=== PATIENT | female | born 2005 | race Caucasian/White ===

== ENCOUNTER 2024-06-20 22:36 | Emergency (ER) | payer MEDICAID ==
[2024-06-20] MEDS ORDERED: DROPERIDOL IV ONE (23:37)
[2024-06-20] MEDS ORDERED: SODIUM CHLORIDE 0.9% IV ONE (23:37)
[2024-06-20] MEDS: diphenhydrAMINE 50 MG/ML SDV IVPUSH ONE (23:52)
[2024-06-20] MEDS: Haloperidol Lactate 5 MG/ML SDV IVPUSH ONE (23:54)
[2024-06-20] MEDS: Sodium Chloride 0.9% 1,000 ML IV ONE (23:54)
[2024-06-20] MEDS: Sodium Chloride 0.9% 10 ML Syringe FLUSH PRN (23:55)
== END 2024-06-21 02:08 | disposition left against medical advice (07) ==
LOC: JD.ED 22:36
DX: F41.0 Panic disorder [episodic paroxysmal anxiety] (principal); R07.9 Chest pain, unspecified; Z87.19 Personal history of other diseases of the digestive system; F17.210 Nicotine dependence, cigarettes, uncomplicated; Z53.29 Procedure and treatment not carried out because of patient's decision for other reasons
CPT/HCPCS: 82947; 93005; 96361; 96374; 96375; 99285; J1200; J1630; J7030; 93010; 99284

== ENCOUNTER 2024-07-15 02:50 | Emergency (ER) | payer MEDICAID ==
[2024-07-15] MEDS ORDERED: Sodium Chloride 0.9% 10 ML Syringe FLUSH PRN (02:57)
[2024-07-15] MEDS ORDERED: LORazepam 2 MG/ML SDV IVPUSH ONE (03:29)
[2024-07-15 03:31] LABS: BASOPHILS PERCENT AUTO 0.3 % (0.0-1.0); EOSINOPHILS PERCENT AUTO 0.1 % (0.0-6.0); HEMATOCRIT 40.3 % (37.0-47.0); IMMATURE GRAN ABSOLUTE AUTO 0.05 K/mm3 (0.00-0.05); IMMATURE GRAN PERCENT AUTO 0.5 % (0.0-0.4); LYMPHOCYTES ABSOLUTE AUTO 0.6 K/mm3 (1.0-4.8); LYMPHOCYTES PERCENT AUTO 6.4 % (24.0-44.0); MEAN CORPUSCULAR HEMOGLOBIN 30.1 pg (28.0-32.0); MEAN CORPUSCULAR HGB CONC 34.7 g/dl (32.0-36.0); MEAN CORPUSCULAR VOLUME 86.7 fl (83.0-99.0); MEAN PLATELET VOLUME 10.6 fl (9.4-12.3); MONOCYTES ABSOLUTE AUTO 0.5 K/mm3 (0.0-0.8); MONOCYTES PERCENT AUTO 4.6 % (0.0-8.0); NEUTROPHILS ABSOLUTE AUTO 8.5 K/mm3 (1.8-7.7); NEUTROPHILS PERCENT AUTO 88.1 % (41.0-71.0); PLATELET COUNT,PLT 226 K/mm3 (150-400); RED BLOOD CELL COUNT 4.65 M/mm3 (4.10-5.30); WHITE BLOOD CELL COUNT,WBC 9.69 K/mm3 (3.9-11.3)
[2024-07-15] MEDS: Ondansetron 4 MG/2 ML SDV IVPUSH ONE ×2 (03:41→07:29)
[2024-07-15 04:04] LABS: ALANINE AMINOTRANSFERASE,ALT 16 U/L (14-59); ALKALINE PHOSPHATASE 78 U/L (46-116); ANION GAP 20.1 (5-15); ASPARTATE AMNIOTRANSFERASE,AST 21 U/L (15-37); BILIRUBIN TOTAL 0.6 mg/dL (0.2-1.0); BLOOD UREA NITROGEN,BUN 9 mg/dL (7-18); BUN/CREATININE RATIO 11.3 (14-18); CALCIUM 9.4 mg/dL (8.5-10.1); CARBON DIOXIDE,CO2 19 mEq/L (21-32); CHLORIDE,CL 102 mEq/L (98-107); CREATININE 0.8 mg/dL (0.55-1.02); ESTIMATED GFR 107 mL/min (>60); GLUCOSE RANDOM 148 mg/dL (70-99); LIPASE 27 U/L (16-77); MAGNESIUM 1.7 mg/dL (1.8-2.4); POTASSIUM,K 3.1 mEq/L (3.5-5.1); PROTEIN TOTAL,TP 7.9 g/dl (6.4-8.2); SODIUM,NA 138 mEq/L (136-145)
[2024-07-15] MEDS: droPERidol 5 MG/2 ML SDV IVPUSH ONE (04:12)
[2024-07-15] MEDS ORDERED: Naloxone 0.4 MG/ML SDV IVPUSH PRN ×2 (04:16→07:11)
[2024-07-15] MEDS: Morphine 2 MG/ML SYRINGE IVPUSH ONE (04:21)
[2024-07-15 04:42] LABS: TROPONIN I HIGH SENSITIVITY < 4 pg/mL (<=51)
[2024-07-15] MEDS: hydrOXYzine HCl 10 MG Tab PO SCH (05:05)
[2024-07-15 05:08] LABS: T4 FREE 1.12 ng/dL (0.76-1.46)
[2024-07-15 06:26] LABS: APPEARANCE,URINE CLEAR (Clear); BILIRUBIN,URINE NEGATIVE (Negative); COLOR,URINE YELLOW (Yellow); GLUCOSE,URINE NEGATIVE (Negative); KETONES,URINE 4+ (Negative); LEUKOCYTE ESTERASE,URINE NEGATIVE (Negative); NITRITE,URINE NEGATIVE (Negative); OCCULT BLOOD,URINE NEGATIVE (Negative); PH,URINE 6.5 (5.0-8.0); PROTEIN,URINE 2+ (Negative); UROBILINOGEN,URINE 0.2 (0.2-1.0)
[2024-07-15 06:46] LABS: BACTERIA,URINE MODERATE /hpf (FEW); RBC,URINE 0-5 /hpf (0-5)
[2024-07-15 06:47] LABS: MUCUS,URINE MODERATE /hpf (FEW)
[2024-07-15] MEDS ORDERED: cefTRIAXone 1,000 MG in Sodium Chloride 0.9% 50 ML IV ONE (07:05)
[2024-07-15] MEDS: Morphine 4 MG/ML Syringe IVPUSH ONE (07:15)
[2024-07-15] MEDS ORDERED: cefTRIAXone 1 GM Vial IV ONE (07:15)
[2024-07-15] MEDS: cefTRIAXone 1 GM Vial IVPUSH ONE (07:32)
[2024-07-15] MEDS: NS + KCl 20mEq/L 1,000 ML IV SCH (07:42)
[2024-07-15] MEDS: Sodium Chloride 0.9% 50 ML ONE (08:15)
[2024-07-15] MEDS: Metoclopramide 10 MG/2 ML SDV IVPUSH ONE (08:15)
[2024-07-15] MEDS ORDERED: hydrOXYzine HCl 10 MG Tab PO SCH (09:00)
[2024-07-15] MEDS: Metoclopramide 10 MG/2 ML SDV ONE (10:13)
[2024-07-15 11:17] LABS: ANION GAP 16.1 (5-15); BUN/CREATININE RATIO 11.4 (14-18); CALCIUM 8.3 mg/dL (8.5-10.1); CREATININE 0.7 mg/dL (0.55-1.02); EST CRCL DRUG DOSING (CG) 109.24 mL/min; MAGNESIUM 1.9 mg/dL (1.8-2.4); POTASSIUM,K 3.1 mEq/L (3.5-5.1)
[2024-07-15 11:49] LABS: BARBITURATE SCREEN,URINE NEGATIVE (CUTOFF=200); BENZODIAZEPINES SCREEN,URINE NEGATIVE (CUTOFF=150); BUPRENORPHINE SCREEN,URINE NEGATIVE (CUTOFF=10); METHADONE SCREEN, URINE NEGATIVE (CUTOFF=200); METHAMPHETAMINES SCREEN, URINE NEGATIVE (CUTOFF=500); OXYCODONE SCREEN,URINE NEGATIVE (CUT0FF=100); THC SCREEN,URINE 20 NG/ML PRESUMPTIVE POSITIVE (CUTOFF=50)
[2024-07-15 11:51] LABS: AMPHETAMINES SCREEN, URINE NEGATIVE (CUTOFF=500)
[2024-07-15] MEDS ORDERED: Potassium Chloride 20 MEQ Tab.ER PO ONE (12:10)
[2024-07-15] MEDS: Pantoprazole 40 MG Vial IVPUSH ONE (12:15)
[2024-07-15] MEDS: Pantoprazole 40 MG Vial ONE (13:28)
[2024-07-15] MEDS: Aluminum Hydroxide/Magnesium Hydroxide/Simethicone Susp 30 ML Cup PO ONE (13:35)
== END 2024-07-15 13:40 | disposition home or self-care (01) ==
LOC: JD.ED 02:50
DX: O99.282 Endocrine, nutritional and metabolic diseases complicating pregnancy, second trimester (principal); E87.6 Hypokalemia; O21.9 Vomiting of pregnancy, unspecified; O23.02 Infections of kidney in pregnancy, second trimester; Z3A.20 20 weeks gestation of pregnancy
CPT/HCPCS: 36415; 71045; 76815; 80048; 80053; 80306; 81001; 83690; 83735; 84439; 84443; 84484; 84702; 85025; 85379; 93005; 96365; 96366; 96367; 96375; 96376; 99285; A9270; J0696; J2270; J2405; J2470; J2765; J3475; J3480; J3490; 93010; 99284

== ENCOUNTER 2025-03-13 17:55 | Emergency (ER) | payer SELFPAY ==
[2025-03-13] MEDS ORDERED: Sodium Chloride 0.9% 10 ML Syringe FLUSH PRN (18:16)
[2025-03-13] MEDS: LORazepam 2 MG/ML SDV IVPUSH ONE (18:41)
[2025-03-13 18:44] LABS: BASOPHILS ABSOLUTE AUTO 0.1 K/mm3 (0.0-0.2); BASOPHILS PERCENT AUTO 0.5 % (0.0-1.0); EOSINOPHILS ABSOLUTE AUTO 0.0 K/mm3 (0.0-0.4); EOSINOPHILS PERCENT AUTO 0.1 % (0.0-6.0); IMMATURE GRAN ABSOLUTE AUTO 0.12 K/mm3 (0.00-0.05); IMMATURE GRAN PERCENT AUTO 0.7 % (0.0-0.4); LYMPHOCYTES ABSOLUTE AUTO 2.1 K/mm3 (1.0-4.8); LYMPHOCYTES PERCENT AUTO 12.3 % (24.0-44.0); MEAN PLATELET VOLUME 10.4 fl (9.4-12.3); MONOCYTES ABSOLUTE AUTO 0.9 K/mm3 (0.0-0.8); MONOCYTES PERCENT AUTO 5.5 % (0.0-8.0); NEUTROPHILS ABSOLUTE AUTO 13.7 K/mm3 (1.8-7.7); NEUTROPHILS PERCENT AUTO 80.9 % (41.0-71.0); NRBC ABSOLUTE 0.00 (0.00-0.02); NRBC PERCENT 0.0 % (0.0-0.2); PLATELET COUNT,PLT 372 K/mm3 (150-400); RED BLOOD CELL COUNT 4.52 M/mm3 (4.10-5.30); WHITE BLOOD CELL COUNT,WBC 16.88 K/mm3 (3.9-11.3)
[2025-03-13 19:11] LABS: A/G RATIO 1.7 (1-2); ALANINE AMINOTRANSFERASE,ALT 23.0 U/L (14-59); ASPARTATE AMNIOTRANSFERASE,AST 15.0 U/L (15-37); BILIRUBIN TOTAL 0.7 mg/dL (0.2-1.0); BLOOD UREA NITROGEN,BUN 16.0 mg/dL (7-18); CARBON DIOXIDE,CO2 23.0 mEq/L (21-32); CHLORIDE,CL 103.0 mEq/L (98-107); CREATININE 1.0 mg/dL (0.55-1.02); EST CRCL DRUG DOSING (CG) 70.38 mL/min; ESTIMATED GFR 82.0 mL/min (>60); GLUCOSE RANDOM 192.0 mg/dL (70-99); POTASSIUM,K 3.3 mEq/L (3.5-5.1); PROTEIN TOTAL,TP 7.8 g/dl (6.4-8.2); SODIUM,NA 142.0 mEq/L (136-145)
[2025-03-13] MEDS: Ketorolac 30 MG/ML SDV IVPUSH ONE (20:28)
[2025-03-13] MEDS: Alum Hydrox/Mag Hydrox/Simeth 30 ML, Lidocaine 2% 15 ML PO ONE (20:28)
[2025-03-13] MEDS: Ondansetron 4 MG/2 ML SDV IVPUSH ONE (21:46)
[2025-03-13] MEDS: droPERidol 2.5 MG/ML SDV IVPUSH ONE (22:51)
== END 2025-03-13 22:34 | disposition home or self-care (01) ==
LOC: JD.ED 17:55
DX: F41.0 Panic disorder [episodic paroxysmal anxiety] (principal); R07.89 Other chest pain; R11.2 Nausea with vomiting, unspecified; Z79.899 Other long term (current) drug therapy
CPT/HCPCS: 36415; 71046; 80053; 83690; 83735; 84484; 85025; 86140; 93005; 96361; 96374; 96375; 99285; J1308; J1790; J1885; J2060; J2405; J2765; J3490; J7030; A9270-GY